=== PATIENT | male | born 1975 | race Caucasian/White ===

== ENCOUNTER 2024-12-09 13:58 | Emergency (ER) | payer SELFPAY ==
[2024-12-09 14:04] VITALS: BP 198/121
[2024-12-09 14:21] LABS: Hematocrit 47.7 % (39.0-52.0); Hemoglobin 16.5 g/dL (13.0-18.0); Mean Corp Hgb Conc. 34.6 g/dL (33.0-37.0); Mean Corpuscular Volume 92.4 fL (80.0-94.0); Nucleated Red Blood Cells % 0 % (-); Platelet Count 312 10^3/uL (130-400); Red Cell Dist. Width 12.7 % (11.5-14.5)
[2024-12-09 14:46] LABS: ALT (SGPT) 44 U/L (0-50); AST (SGOT) 33 U/L (17-59); Albumin 5.0 g/dl (3.5-5.0); Alkaline Phosphatase 55 U/L (38-126); Blood Urea Nitrogen 13 mg/dl (9-20); Calcium 9.7 mg/dl (8.4-10.2); Chloride 107 mmol/L (98-107); Glucose 128 mg/dl (70-99); Magnesium 1.7 mg/dl (1.6-2.3); Potassium 4.5 mmol/L (3.5-5.1); Sodium 142 mmol/L (135-145); Total Protein 7.7 g/dl (6.3-8.2); eGFR > 60.00
[2024-12-09 14:52] LABS: Troponin I < 0.012 ng/ml
[2024-12-09 14:55] LABS: Carbon Dioxide 24 mmol/L (22-30)
[2024-12-09 16:05] VITALS: BP 189/96
[2024-12-09 16:57] VITALS: BP 184/106
[2024-12-09 17:00] VITALS: BP 183/92
--- NOTE | 2024-12-09 17:02 | ED.GENMED ---
History of Present Illness
General
Chief Complaint: Chest Pain
Source: patient
Exam Limitations: none
Time Seen by Provider: 12/09/24 16:03
Nursing documentation reviewed up to this point in time: agreed with
History of Present Illness
History of Present Illness:
see MDM
Past History
Past History
ED Past Medical History: HTN
ED Past Surgical History: Other (Hernia repair)
Social History
Tobacco: Non-smoker
Alcohol: Daily
Drug: Marijuana
Review of Systems
Review of Systems
Allergies reviewed?: Yes
All Other Systems: Not applicable
Phy Exam
Physical Exam
Physical Exam:
GENERAL: Alert , in no apparent distress, anxious
EYE: pupils equal and reactive
NECK: Supple
ENT: o/p clr, mmm.
CARDIAC: Regular rate and rhythm .no nurmur
LUNGS: Clear breath sounds bilaterally, no acute respiratory distress, no wheezes/rales/rhonchi
ABDOMEN: Soft, distended but nontender, no r/g, no cvat, normal bowel sounds
neg cramer's sign
NEUROLOGICAL: Alert and oriented, no focal neuro deficits
SKIN: Warm and dry, skin intact.
mottling of skin of abdomen
MUSCULOSKELETAL: No edema, well perfused. neg damari's sign
PSYCH: Normal and appropriate interaction.
Scores
Heart Score for Chest Pain Patients
STEMI patient?: No
History: Slightly or Non-Suspicious
ECG: Nonspecific Repolarization
Age: >45 - <65 years
Risk Factors: 1 or 2 Risk Factors
Troponin: </= Normal Limit
Heart Score for Chest Pain Patients: 3
Heart Score Risk: 2.5% MACE over next 6 weeks
Course
Orders/Labs/Results
Orders:
Orders
12/09/24 14:00
EKG [Electrocardiogram (*1)] Urgent
Reason for Study: Chest Pain
EKG- Treatment ONCE
12/09/24 14:14
CBC/With Diff [Complete Blood Count/With Diff] Urgent
Comprehensive Metabolic Panel Urgent
Lipase Urgent
Comment: ADDON
Magnesium Urgent
TSH Reflex To Free T4 Urgent
Troponin I Urgent
12/09/24 17:00
Add On- LAB Urgent
Tests Added?: lipase
12/09/24 17:01
Lisinopril [Zestril] 20 mg PO NOW STA
12/09/24 17:10
Electrocardiogram (*1) Urgent
Reason for Study: Chest Pain
EKG- Treatment ONCE
12/09/24 17:22
Troponin I Urgent
Abnormal Lab Results
12/09/24
14:14
MCH 32.0 H pg
(27.0-31.0)
Lymphocytes % 19.7 L %
(20.5-51.1)
Glucose 128 H mg/dl
(70-99)
12/09/24 14:14
12/09/24 14:14
Vital Signs
Blood pressure: 172/91
Initial and Last Documented VS:
Initial Vital Signs
Temp Pulse Resp BP Pulse Ox
36.9 C 96 18 198/121 94
12/09/24 14:04 12/09/24 14:04 12/09/24 14:04 12/09/24 14:04 12/09/24 14:04
Last Documented Vital Signs
Temp Pulse Resp BP Pulse Ox
36.9 C 80 14 172/91 94
12/09/24 14:04 12/09/24 18:15 12/09/24 16:30 12/09/24 18:08 12/09/24 18:15
MDM/Problems Addressed
Differential Diagnosis Includes:
see MDM
MDM/Problems Addressed:
Note:
CHIEF COMPLAINT(S)
- Bloating, palpitations, and chest discomfort.
HISTORY OF PRESENT ILLNESS
The patient is a 49-year-old male with a history of hypertension for which he was previously prescribed lisinopril 20 mg daily. He has been off the medication for about a year due to a lack of insurance after losing his job. The patient reports
feeling subjectively aware of elevated blood pressure, stating, 'I just know when I dont feel right,' accompanied by episodes of heart racing and bloating around the upper abdomen. The recent bloating and discomfort have led him to self-medicate
with [id number] omeprazole after previous experiences with an ulcer.
Symptoms of palpitations, hot flashes, dizziness, and atypical chest discomfort began around 8:00 AM and worsened over the course of the morning, prompting the visit. The patient described feeling 'bloated' and experiencing pressure in the upper
abdomen and chest with associated shortness of breath and fatigue without michael chest pain. He reported that these symptoms occasionally resolved with rest but recurred. The patient denies outright episodes of alcohol withdrawal but admits to
consuming six to seven beers every other day. He has experienced weight gain despite reduced food intake, and notes changes in stool color (matching food intake, but not dark or bloody). There is no prior personal or familial history of myocardial
infarction, although there is a history of strokes in close male relatives.
PAST MEDICAL AND SURIGICAL HISTORY
- Hypertension, previously managed with lisinopril.
SOCIAL DETERMINANTS AFFECTING HEALTH
- Financial issues due to unemployment leading to lack of insurance.
- Alcohol use estimated at six beers every other day.
FAMILY HISTORY
- Fathers and grandfathers demise attributed to strokes.
SOCIAL HISTORY
- Smokes less than a pack of cigarettes per day.
- Heavy alcohol use specified as six to seven beers every other day.
REVIEW OF SYSTEMS
- Cardiovascular: Reports heart racing, palpitations, and hot flashes.
- Gastrointestinal: Upper abdominal bloating, changes in stool color.
- Respiratory: Breathing described as panting with fatigue.
- Neurological: Episodes of dizziness.
PHYSICAL EXAM
- Cardiovascular: Review of vital signs showed elevated blood pressure initially recorded at 180/90 mmHg.
- Gastrointestinal: Observed bloating of the upper abdomen.
- Nursing notes reviewed and vital signs reviewed.
PROBLEM LIST
Acute:
- Elevated blood pressure sensation with hypertensive episodes.
- Abdominal bloating with possible gastrointestinal components.
- Palpitations and consideration of cardiac etiology.
- Alcohol use with potential liver concerns.
PLAN
- Refill lisinopril to manage hypertension.
- Conduct cardiac enzyme test to rule out myocardial infarction.
- Consider ultrasound of the abdomen to assess for liver disease or other gastrointestinal causes of bloating.
- Referral to a residency clinic for follow-up management and consideration of financial and insurance assistance.
- Counseling on gradual reduction of alcohol consumption.
DIFFERENTIAL DIAGNOSIS
The Differential Diagnosis includes, in no particular order and is not limited to:
1. Hypertensive crisis.
2. Gastroesophageal reflux disease (GERD).
3. Alcoholic liver disease.
4. Cardiomyopathy related to alcohol use.
5. Arrhythmia.
6. Ulcer recurrence.
7. Anxiety-related palpitations.
8. Non-alcoholic fatty liver disease.
9. Portal hypertension.
10. Hyperthyroidism.
48 y/o M
h/o HTN
alcohol use, nearly daily at this point
smoker
noncompliant with mjeds, ran out
h/o PUD takign OTC prilosec
here mostly for feeling palpitations this morning around 11 am when at rest, and then got nervous and felt some tinglign in his L hand
he also has been having ongoing 'abdominal bloating' bora after eating. it's not painful but he feels like he has put on weight and is bloated nearly all th time, but this is going on for 6+ months, unlike jignesh saying this is 1 mo of symptoms
the abd bloating is not new and not really what he is presenting for
pt admits that more recnetly he was laid off and has no insurance so ehe has been drinkign beers throughout the day, starting in the late morning
he didn't realize he was drinking this much
pt says that he puts heating pad on his abdomen for some relief of distension
he denies exertional cp, sob, leg swelling, syncope, fever.
but was feeling anxious this morning with the palpitations but they only lasted 3 second long
he has no PE RF.
pt is aware his bp is always elevated 180/90s is around his baseline
currently that is his BP
he has some abde distension vs. ascites; but is nontender
the skin is mottled from haivng used heating pad
no varicosiites
he has no appreciated hepatomegaly
1st ekg/trop neg
cr normal
no signs end organ damage form HTN
doubt pt has aortic disease, given lack of ongoing sypmtoms and the description of more palpitations than pain
offered testing because of his history, including either CT scan or US for liver
pt is refusing due to lackk of insurance
will refill lisionopril and recommend that he f/u in residency clinic after 2nt trop/ekg.
bp downt o 170/90
2nd trop neg
ekg unchnanged
i sent message to residency clinic
d/c home
*Pulse Oximetry
SaO2: 94
Oxygen Mode of Delivery: Room air
Patient hypoxic: no (94)
*Critical Care Note
Total Time (30-74mins, 75-104mins- exclusive of procedures): Not Applicable
ED Attending Note
-
Portions of this chart may have been created with voice recognition software.� Occasional wrong word or��sound alike� substitutions may have occurred due to the inherent limitations of voice recognition software.
Discharge Plan
Departure
Patient Disposition: Home (Routine Discharge)
Date of Disposition: 12/09/24
Time of Disposition: 18:07
Patient with high blood pressure during this ER visit?: Yes
Discharge Problem:
Hypertension, uncontrolled, Chest pain
Instructions: Chest Pain PCP Follow Up, BLOOD PRESSURE
Prescriptions:
New
lisinopril 20 mg tablet
20 mg PO DAILY Qty: 60 0RF
Referrals:
[facility] [Outside] - Follow up in 1 week
NONE,* [Family Provider, Internal Medicine]
Activity Restrictions/Additional Instructions:
YOUR BLOOD PRESSURE IS ELEVATED BUT YOU HAD NO SIGNS OF A HEART ATTACK
YOU PROBABLY NEED TO CONSIDER REDUCTION IN ALCOHOL INTAKE
TAKE YOUR PRILOSEC FOR YOUR STAOMCH
WE OFFERED SOME TESTING WITH IMAGING TODAY WHICH YOU DECLINED - SO BE SURE TO FOLLOW UP WITH THE RESIDENCY CLINIC
IN THE MEANTIME, TAKE YOUR LISINOPRIL DAILY
RETURN FOR ANY CONCERNS.
Interventions
Interventions:
*Risk Screen - Suicide Last Done: 12/09/24 14:04
*General Assessment Last Done: 12/09/24 18:52
*Neglect/Abuse Screening Last Done: 12/09/24 14:04
*ED- Fall Risk Assessment Last Done: 12/09/24 18:52
*Nursing Disposition Last Done: 12/09/24 18:52
ED- Cardiac Assessment Last Done: 12/09/24 17:10
Discharge Date and Time
Discharge Date/Time: 12/09/24 18:52
Print Language: MALIAN
[2024-12-09 17:10] VITALS: BP 173/107
[2024-12-09] MEDS: ZESTRIL 20 MG PO (17:31)
[2024-12-09 17:32] LABS: Lipase 133 U/L (23-300)
[2024-12-09 17:55] LABS: Troponin I < 0.012 ng/ml
[2024-12-09 18:00] VITALS: BP 170/91
== END 2024-12-09 18:52 | disposition home or self-care (01) ==
LOC: EMR 13:58
PROVIDERS: Physician Assistant; EMERGENCY PHYSICIAN Student in an Organized Health Care Education/Training Program
DX: I10 Essential (primary) hypertension (principal); R07.9 Chest pain, unspecified; Z59.71 Insufficient health insurance coverage; Z59.86 Financial insecurity; Z82.3 Family history of stroke
CPT/HCPCS: 99284; 80053; 83690; 83735; 84443; 84484; 85025; 93005